=== PATIENT | male | born 1975 | race Caucasian/White ===

== ENCOUNTER → 2023-08-20 | Outpatient (CLI) | payer BC ==
[~2023-08-20] MED LIST: ALPR0.5T PO; AMPH30CA PO; CEPH500C2 MT; D-AM10TA2 PO; DIATR MEGLU/DIATRIZOATE SOLN 120ML ONE; DULO60CA45 PO; NAPR220T66 PO; TRAZ-252 PO
== END | disposition home or self-care (01) ==
LOC: RAD 09:47
PROVIDERS: ATTEND Surgery
DX: Z93.3 Colostomy status (principal)
CPT/HCPCS: 74270; Q9963